=== PATIENT | female | born 1980 | race Caucasian/White ===

== ENCOUNTER → 2020-11-03 | Outpatient (REF) | payer OTHER ==
[2020-11-03 14:08] LABS: BASO # 0.1 10^3/uL (0.0-0.2); BASO % 0.5 % (0.0-1.0); EOS # 0.1 10^3/uL (0.0-0.5); EOS % 1.1 % (0.0-3.0); HEMATOCRIT 43.6 % (36.0-47.0); HEMOGLOBIN 14.1 g/dl (12.0-15.5); LYMPH # 2.5 10^3/uL (1.5-5.0); LYMPH % 26.2 % (24.0-44.0); MEAN CORPUSCULAR HEMOGLOBIN 30.8 pg (27.0-33.0); MEAN CORPUSCULAR HGB CONC 32.3 g/dl (32.0-36.5); MEAN CORPUSCULAR VOLUME 95.2 fl (80.0-96.0); MONO # 0.8 10^3/uL (0.0-0.8); NEUTROPHILS % 63.7 % (36.0-66.0); PLATELET COUNT, AUTOMATED 410 10^3/uL (150-450); RED BLOOD COUNT 4.58 10^6/uL (4.00-5.40); WHITE BLOOD COUNT 9.4 10^3/uL (4.0-10.0)
[2020-11-03 14:27] LABS: HEMOGLOBIN A1c 5.6 %
[2020-11-03 16:50] LABS: ALBUMIN 3.8 GM/DL (3.2-5.2); ALT/SGPT 45 U/L (12-78); BILIRUBIN,TOTAL 0.4 MG/DL (0.2-1.0); BLOOD UREA NITROGEN 11 MG/DL (7-18); CALCIUM LEVEL 9.8 MG/DL (8.5-10.1); CARBON DIOXIDE LEVEL 27 MEQ/L (21-32); CHLORIDE LEVEL 104 MEQ/L (98-107); CHOLESTEROL LEVEL 240 MG/DL (<200); CHOLESTEROL RISK RATIO 4.137 (<5); CREATININE FOR GFR 0.93 MG/DL (0.55-1.30); FREE T4 1.27 NG/DL (0.76-1.46); GLOMERULAR FILTRATION RATE > 60.0 (>58); GLUCOSE, FASTING 103 MG/DL (70-100); HDL CHOLESTEROL 58 MG/DL (>40); LDL CHOLESTEROL 134 MG/DL (<100); NON-HDL-C 182 MG/DL; POTASSIUM SERUM 4.7 MEQ/L (3.5-5.1); SODIUM LEVEL 138 MEQ/L (136-145); THYROID PEROXIDASE ANTIBODY 32.8 U/ML (<60.0); THYROID STIMULATING HORMONE 0.737 uIU/ML (0.358-3.740); TOTAL PROTEIN 7.1 GM/DL (6.4-8.2); TRIGLYCERIDES LEVEL 239 MG/DL (<150)
[2020-11-04 10:55] LABS: THYROGLOBULIN ANTIBODY < 15.0 U/ML (<60.0)
== END ==
LOC: M SFHCPLAZ 10:08
PROVIDERS: ATTEND Physician Assistant Medical
DX: Z00.00 Encounter for general adult medical examination without abnormal findings (principal); Z13.1 Encounter for screening for diabetes mellitus; Z13.220 Encounter for screening for lipoid disorders

== ENCOUNTER → 2022-05-03 | Outpatient (CLI) | payer BC | LOC: M WHC 08:11 | PROVIDERS: ATTEND Physician Assistant | DX: E89.0 Postprocedural hypothyroidism (principal) ==

== ENCOUNTER → 2022-11-03 | Outpatient (REF) | payer BC | LOC: M LAB REF 10:15 | PROVIDERS: ATTEND Physician Assistant | DX: R10.812 Left upper quadrant abdominal tenderness (principal); R31.9 Hematuria, unspecified ==

== ENCOUNTER 2023-01-06 20:33 | Observation (INO) | payer BC ==
[~2023-01-06] VITALS: Ht 157.5 cm; Wt 140.4 kg
[2023-01-06 21:44] LABS: BASO # 0.1 10^3/uL (0.0-0.2); BASO % 0.7 % (0.0-1.0); EOS # 0.2 10^3/uL (0.0-0.5); EOS % 1.3 % (0.0-3.0); HEMATOCRIT 42.9 % (36.0-47.0); HEMOGLOBIN 14.2 g/dl (12.0-15.5); LYMPH # 3.3 10^3/uL (1.5-5.0); LYMPH % 22.8 % (24.0-44.0); MEAN CORPUSCULAR HEMOGLOBIN 30.1 pg (27.0-33.0); MEAN CORPUSCULAR HGB CONC 33.1 g/dl (32.0-36.5); MEAN CORPUSCULAR VOLUME 91.1 fl (80.0-96.0); MONO # 1.2 10^3/uL (0.0-0.8); MONO % 8.1 % (2.0-8.0); NEUTROPHILS # 9.4 10^3/uL (1.5-8.5); PLATELET COUNT, AUTOMATED 366 10^3/uL (150-450); RED BLOOD COUNT 4.71 10^6/uL (4.00-5.40); WHITE BLOOD COUNT 14.3 10^3/uL (4.0-10.0)
[2023-01-06] MEDS ORDERED: NS 1,000 ML IV ONE (21:55)
[2023-01-06] MEDS ORDERED: ONDANSETRON 4MG 2ML VIAL IV ONE (21:55)
[2023-01-06] MEDS ORDERED: KETOROLAC 30 MG/ML 1ML VIAL IV ONE (21:55)
[2023-01-06] MEDS ORDERED: ISOVUE-370 76% 100ML VIAL As Ordered ONE (22:05)
[2023-01-06] MEDS ORDERED: cefTRIAXone SOD 1 GM in D5W MINI-BAG PLUS 50 ML IV ONE (23:50)
[2023-01-07] VITALS (9 sets, daily range): BP systolic 109–174; BP diastolic 69–118; TEMP 97.7–98.8; O2SAT 90–97
[2023-01-07] MEDS ORDERED: MORPHINE 4 MG/ML 1ML VIAL IV ONE (00:05)
[2023-01-07] MEDS ORDERED: ONDANSETRON 4MG 2ML VIAL IV ONE (00:10)
[2023-01-07] MEDS ORDERED: KETOROLAC 30 MG/ML 1ML VIAL IV PRN (02:10)
[2023-01-07] MEDS: TAMSULOSIN 0.4 MG CAP PO SCH ×2 (02:42→08:28)
[2023-01-07] MEDS: NS 1,000 ML IV SCH ×2 (02:42→22:13)
[2023-01-07] MEDS ORDERED: HYDR-3363 PO (02:46)
[2023-01-07] MEDS ORDERED: CLOB-24 TOP (02:46)
[2023-01-07] MEDS ORDERED: PEPC10TA6 PO (02:46)
[2023-01-07] MEDS ORDERED: HM C500T4 PO (02:46)
[2023-01-07] MEDS ORDERED: LAMO250T PO (02:46)
[2023-01-07] MEDS ORDERED: ALLE180T33 PO (02:46)
[2023-01-07] MEDS ORDERED: CHOL50002 PO (02:46)
[2023-01-07] MEDS ORDERED: VITMTA PO (02:46)
[2023-01-07] MEDS ORDERED: NASA10TA2 PO (02:46)
[2023-01-07] MEDS ORDERED: SYNT25TA PO (02:46)
[2023-01-07] MEDS ORDERED: ERGO500029 PO (02:46)
[2023-01-07] MEDS ORDERED: MUPI2OI NARES (02:46)
[2023-01-07] MEDS ORDERED: NASA1SPR (02:46)
[2023-01-07] MEDS ORDERED: LEVO2TA PO (02:46)
[2023-01-07] MEDS ORDERED: HOME MED LIST COMPLETE! XX SCH (02:50)
[2023-01-07] MEDS ORDERED: amLODIPine 5 MG TAB PO ONE (03:35)
[2023-01-07] MEDS: ONDANSETRON 4MG 2ML VIAL IV PRN (04:16)
[2023-01-07] MEDS: HYDROMORPHONE HCL 0.5 MG/ 0.5 ML SYRINGE IV PRN ×2 (04:16→09:39)
[2023-01-07] MEDS ORDERED: PILL CUTTER 1 EACH XX PRN (05:05)
[2023-01-07] MEDS: LEVOTHYROXINE 100MCG TABLET (0.1MG) PO SCH (06:29)
[2023-01-07] MEDS: METOCLOPRAMIDE INJ 10MG/2ML VIAL IV PRN (06:29)
[2023-01-07] MEDS: LEVOTHYROXINE 25MCG TABLET (0.025MG) PO SCH (06:29)
[2023-01-07 08:03] LABS: BASO # 0.1 10^3/uL (0.0-0.2); BASO % 0.5 % (0.0-1.0); EOS % 0.1 % (0.0-3.0); HEMATOCRIT 42.9 % (36.0-47.0); HEMOGLOBIN 14.3 g/dl (12.0-15.5); LYMPH # 1.3 10^3/uL (1.5-5.0); LYMPH % 8.4 % (24.0-44.0); MEAN CORPUSCULAR HEMOGLOBIN 30.6 pg (27.0-33.0); MEAN CORPUSCULAR HGB CONC 33.3 g/dl (32.0-36.5); MEAN CORPUSCULAR VOLUME 91.9 fl (80.0-96.0); MONO % 6.5 % (2.0-8.0); NEUTROPHILS # 12.6 10^3/uL (1.5-8.5); NEUTROPHILS % 83.6 % (36.0-66.0); PLATELET COUNT, AUTOMATED 325 10^3/uL (150-450); RED BLOOD COUNT 4.67 10^6/uL (4.00-5.40); WHITE BLOOD COUNT 15.1 10^3/uL (4.0-10.0)
[2023-01-07] MEDS: lamoTRIgine 100MG TAB PO SCH (08:29)
[2023-01-07] MEDS: amLODIPine 5 MG TAB PO SCH (08:29)
[2023-01-07 08:41] LABS: CALCIUM LEVEL 8.5 MG/DL (8.5-10.1); CREATININE FOR GFR 1.16 MG/DL (0.55-1.30); GLOMERULAR FILTRATION RATE 54.3 (>58); MAGNESIUM LEVEL 1.8 MG/DL (1.8-2.4); POTASSIUM SERUM 4.4 MMOL/L (3.5-5.1)
[2023-01-07] MEDS ORDERED: ISOVUE-300 61% 100ML VIAL As Ordered ONE (12:49)
[2023-01-07] MEDS ORDERED: propofoL 200 MG/20 ML VIAL As Ordered ONE ×2 (17:06→18:09)
[2023-01-07] MEDS ORDERED: fentaNYL 100 MCG/2 ML INJECTION As Ordered ONE ×2 (17:06→18:10)
[2023-01-07] MEDS ORDERED: MIDAZOLAM INJ 2MG/2ML VIAL As Ordered ONE (17:06)
[2023-01-07] MEDS ORDERED: METOCLOPRAMIDE INJ 10MG/2ML VIAL As Ordered ONE (17:07)
[2023-01-07] MEDS ORDERED: ONDANSETRON 4MG 2ML VIAL As Ordered ONE (17:08)
[2023-01-07] MEDS ORDERED: SCOPOLAMINE 1MG TRANSDERMAL PATCH TOP ONE (17:10)
[2023-01-07] MEDS ORDERED: LIDOCAINE 2% 100MG/5ML SDV (FOR ANES.) As Ordered ONE (17:12)
[2023-01-07] MEDS ORDERED: SCOPOLAMINE 1MG TRANSDERMAL PATCH As Ordered ONE (17:17)
[2023-01-07] MEDS ORDERED: ceFAZolin 1GM VIAL As Ordered ONE (17:49)
[2023-01-07] MEDS ORDERED: PHENYLephrine 500MCG 5ML (100MCG/ML) SYRINGE As Ordered ONE (17:50)
[2023-01-07] MEDS ORDERED: ceFAZolin 2 GM/D5W 50 ML IV BAG As Ordered ONE (17:50)
[2023-01-07] MEDS ORDERED: VASOPRESSIN INJ 20UNITS/ML 1ML VIAL As Ordered ONE (17:58)
[2023-01-07] MEDS ORDERED: SERTRALINE 100 MG TAB PO SCH (21:00)
[2023-01-07] MEDS ORDERED: lamoTRIgine 100MG TAB PO SCH (21:00)
[2023-01-07] MEDS ORDERED: FAMOTIDINE 20 MG TAB PO SCH (21:00)
[2023-01-08] VITALS: BP 115/73; TEMP 97.7; O2SAT 91
[2023-01-08 01:00] VITALS: BP 113/69; TEMP 97.9; O2SAT 91
[2023-01-08] MEDS: ONDANSETRON 4MG 2ML VIAL IV PRN (04:44)
[2023-01-08 05:30] VITALS: BP 103/69; TEMP 97.7; O2SAT 94
[2023-01-08] MEDS: LEVOTHYROXINE 25MCG TABLET (0.025MG) PO SCH (05:32)
[2023-01-08] MEDS: LEVOTHYROXINE 100MCG TABLET (0.1MG) PO SCH (05:32)
[2023-01-08] MEDS: HYDROMORPHONE HCL 0.5 MG/ 0.5 ML SYRINGE IV PRN ×2 (05:32→09:00)
[2023-01-08 08:17] LABS: BASO # 0.1 10^3/uL (0.0-0.2); BASO % 0.3 % (0.0-1.0); HEMATOCRIT 37.6 % (36.0-47.0); LYMPH # 1.6 10^3/uL (1.5-5.0); LYMPH % 9.2 % (24.0-44.0); MEAN CORPUSCULAR HEMOGLOBIN 30.5 pg (27.0-33.0); MEAN CORPUSCULAR HGB CONC 32.4 g/dl (32.0-36.5); MONO # 0.9 10^3/uL (0.0-0.8); MONO % 5.1 % (2.0-8.0); NEUTROPHILS # 14.6 10^3/uL (1.5-8.5); NEUTROPHILS % 84.7 % (36.0-66.0); PLATELET COUNT, AUTOMATED 301 10^3/uL (150-450); WHITE BLOOD COUNT 17.3 10^3/uL (4.0-10.0)
[2023-01-08 08:18] LABS: HEMOGLOBIN 12.2 g/dl (12.0-15.5)
[2023-01-08 08:38] LABS: BLOOD UREA NITROGEN 20 MG/DL (9-23); CALCIUM LEVEL 7.5 MG/DL (8.5-10.1); CARBON DIOXIDE LEVEL 27 MMOL/L (20-31); CHLORIDE LEVEL 104 MMOL/L (98-107); CREATININE FOR GFR 1.06 MG/DL (0.55-1.30); GLOMERULAR FILTRATION RATE > 60.0 (>58); GLUCOSE, FASTING 167 MG/DL (60-100); POTASSIUM SERUM 4.4 MMOL/L (3.5-5.1); SODIUM LEVEL 137 MMOL/L (136-145)
[2023-01-08] MEDS: lamoTRIgine 100MG TAB PO SCH (08:49)
[2023-01-08] MEDS: amLODIPine 5 MG TAB PO SCH (08:49)
[2023-01-08] MEDS: TAMSULOSIN 0.4 MG CAP PO SCH (08:49)
[2023-01-08] MEDS: METOCLOPRAMIDE INJ 10MG/2ML VIAL IV PRN (09:04)
[2023-01-08] MEDS ORDERED: AMLO1TAB24 PO (09:33)
[2023-01-08] MEDS ORDERED: FLOM0.4C39 PO (09:33)
[2023-01-08] MEDS ORDERED: LEVO1TAB39 PO (09:37)
[2023-01-08 10:00] VITALS: BP 110/68; TEMP 97.9; O2SAT 94
== END 2023-01-08 10:54 | disposition home or self-care (01) ==
LOC: M ED 20:33 → M ED INP 20:34 → ENRESERV 01-07 01:04 → M MSPAV 01-07 02:32
PROVIDERS: ADMIT Internal Medicine; ATTEND Internal Medicine
DX: N20.1 Calculus of ureter (principal); I10 Essential (primary) hypertension; E66.01 Morbid (severe) obesity due to excess calories; K21.9 Gastro-esophageal reflux disease without esophagitis; F31.9 Bipolar disorder, unspecified; Z85.850 Personal history of malignant neoplasm of thyroid; Z88.8 Allergy status to other drugs, medicaments and biological substances; Z91.040 Latex allergy status; Z79.899 Other long term (current) drug therapy; Z79.890 Hormone replacement therapy; Z79.891 Long term (current) use of opiate analgesic; Z84.1 Family history of disorders of kidney and ureter
CPT/HCPCS: 36415; 52356; 74177; 74420; 80047; 80048; 81001; 83735; 84702; 85025; 87635; 96365; 96375; 96376; 99284; C1769; C2617; J0690; J0696; J1100; J1170; J1885; J2250; J2370; J2405; J2598; J2765; J3010; Q9967

== ENCOUNTER → 2023-01-19 | Outpatient (REF) | payer BC ==
[~2023-01-19] MED LIST: ALLE180T33 PO; AMLO1TAB24 PO; BACT800T5 PO; CHOL50002 PO; CLOB-24 TOP; ERGO500029 PO; FLOM0.4C39 PO; HM C500T4 PO; HYDR-3363 PO; LAMO250T PO; LEVO1TAB39 PO; LEVO2TA PO; MUPI2OI NARES; NAPR-837 PO; NASA10TA2 PO; NASA1SPR; OXYB5TAB10 PO; PEPC10TA6 PO; PHEN1TAB73 PO; SYNT25TA PO; VITMTA PO
== END ==
LOC: M LAB REF 22:10
PROVIDERS: ATTEND Student in an Organized Health Care Education/Training Program
DX: R10.812 Left upper quadrant abdominal tenderness (principal)

== ENCOUNTER 2023-01-21 07:49 | Emergency (ER) | payer BC ==
[~2023-01-21] VITALS: Ht 157.5 cm; Wt 139.0 kg
[~2023-01-21 07:49] MED LIST changes: -BACT800T5 PO; -NAPR-837 PO; -OXYB5TAB10 PO; -PHEN1TAB73 PO
[2023-01-21] MEDS ORDERED: NS 1,000 ML IV ONE (08:05)
[2023-01-21 08:45] LABS: BASO # 0.1 10^3/uL (0.0-0.2); BASO % 0.9 % (0.0-1.0); EOS # 0.3 10^3/uL (0.0-0.5); EOS % 2.5 % (0.0-3.0); HEMATOCRIT 39.2 % (36.0-47.0); HEMOGLOBIN 12.9 g/dl (12.0-15.5); LYMPH # 2.7 10^3/uL (1.5-5.0); LYMPH % 25.5 % (24.0-44.0); MEAN CORPUSCULAR HEMOGLOBIN 30.6 pg (27.0-33.0); MEAN CORPUSCULAR HGB CONC 32.9 g/dl (32.0-36.5); MEAN CORPUSCULAR VOLUME 93.1 fl (80.0-96.0); MONO % 9.7 % (2.0-8.0); NEUTROPHILS # 6.4 10^3/uL (1.5-8.5); NEUTROPHILS % 60.8 % (36.0-66.0); PLATELET COUNT, AUTOMATED 381 10^3/uL (150-450); RED BLOOD COUNT 4.21 10^6/uL (4.00-5.40); WHITE BLOOD COUNT 10.5 10^3/uL (4.0-10.0)
[2023-01-21] MEDS ORDERED: KETOROLAC 30 MG/ML 1ML VIAL IV ONE (09:05)
[2023-01-21 09:12] LABS: ALBUMIN 3.7 G/DL (3.2-5.2); ALKALINE PHOSPHATASE 69 U/L (46-116); ALT/SGPT 54 U/L (7.0-40); AST/SGOT 40 U/L (<34); BILIRUBIN,DIRECT 0.1 MG/DL (<0.4); BILIRUBIN,TOTAL 0.5 MG/DL (0.3-1.2); BLOOD UREA NITROGEN 20 MG/DL (9-23); CALCIUM LEVEL 9.5 MG/DL (8.5-10.1); CARBON DIOXIDE LEVEL 28 MMOL/L (20-31); CHLORIDE LEVEL 103 MMOL/L (98-107); CREATININE FOR GFR 0.74 MG/DL (0.55-1.30); GLOMERULAR FILTRATION RATE > 60.0 (>58); GLUCOSE, FASTING 141 MG/DL (60-100); POTASSIUM SERUM 4.1 MMOL/L (3.5-5.1); SODIUM LEVEL 137 MMOL/L (136-145); TOTAL PROTEIN 6.3 G/DL (5.7-8.2)
[2023-01-21] MEDS ORDERED: ISOVUE-370 76% 100ML VIAL As Ordered ONE (09:12)
[2023-01-21] MEDS ORDERED: cefTRIAXone SOD 1 GM in D5W MINI-BAG PLUS 50 ML IV ONE (11:05)
[2023-01-21] MEDS ORDERED: BACT800T5 PO (12:34)
[2023-01-21] MEDS ORDERED: NAPR-837 PO (12:34)
[2023-01-21] MEDS ORDERED: OXYB5TAB10 PO (12:34)
[2023-01-21] MEDS ORDERED: PHEN1TAB73 PO (12:34)
[2023-01-21 12:40] VITALS: BP 132/88; TEMP 97.4; O2SAT 97
== END 2023-01-21 12:50 | disposition home or self-care (01) ==
LOC: M ED 07:49
DX: N39.0 Urinary tract infection, site not specified (principal); R10.9 Unspecified abdominal pain; I10 Essential (primary) hypertension; K21.9 Gastro-esophageal reflux disease without esophagitis; E03.9 Hypothyroidism, unspecified; Z87.442 Personal history of urinary calculi; Z88.8 Allergy status to other drugs, medicaments and biological substances; Z91.040 Latex allergy status; Z79.899 Other long term (current) drug therapy
CPT/HCPCS: 74177; 80047; 80048; 80076; 81001; 84702; 85025; 87086; 96365; 96375; 99284; J0696; J1885; Q9967

== ENCOUNTER → 2023-01-28 | Outpatient (REF) | payer BC ==
[~2023-01-28] MED LIST changes: +BACT800T5 PO; +NAPR-837 PO; +OXYB5TAB10 PO; +PHEN1TAB73 PO
== END ==
LOC: M WUC 19:53
PROVIDERS: ATTEND Physician Assistant
DX: R30.0 Dysuria (principal); R10.30 Lower abdominal pain, unspecified